=== PATIENT | female | born 1970 | race African-American/Black ===

== ENCOUNTER 2016-09-17 08:34 | Observation (INO) | payer OTHER ==
[~2016-09-17] VITALS: Ht 172.7 cm; Wt 96.8 kg
[~2016-09-17 08:34] MED LIST: ACETTAB3 OR; AMOXICILLIN500 MG PO; ATENOLOL25 MG OR; AVAPRO300 MG OR; CLOTRIMAZOLE100 MG VA; CORTISPORIN OTI10 M2 OT; COVERA HS PO; DIGOXIN0.125 MG PO; DIGOXIN0.25 MG PO; FUROSEMIDE20 MG PO; FUROSEMIDE40 MG PO; HYDROCO/APAP1 TA9 OR; LASIX 10 MG10 MG/TA1 PO; LASIX40 MG OR; LASIX40 MG PO; LEVOTHYROXIN100 MC1 PO; LEVOTHYROXIN25 MC1 PO; Levaquin PO; NAPROSYN375 MG PO; NASONEX50 MCG/AC; PLAVIX75 MG PO; SOMA350 MG OR; TENORMIN OR; TENORMIN PO; TENORMIN50 MG PO; TRAMADOL HCL50 MG PO; VERAPAMIL HCL180 M1 OR; VERAPAMIL OR; VERAPAMIL PO; VICOPROFEN OR
--- NOTE | 2016-09-17 08:40 | NUR ---
PT ARRIVES AND AMBULATES TO ROOM 2 WITH STABLE GAIT, TRIAGED AT BEDSIDE.
[2016-09-17] MEDS ORDERED: ATENOLOL100 MG PO (08:47)
[2016-09-17] MEDS ORDERED: LISINOPRIL20 MG PO (08:48)
[2016-09-17] MEDS ORDERED: AMLODIPINE10 MG PO (08:48)
[2016-09-17] MEDS ORDERED: SINGULAIR10 MG PO (08:49)
[2016-09-17] MEDS ORDERED: BACLOFEN10 MG PO (08:49)
[2016-09-17 09:28] LABS: HEMATOCRIT 42.8 % (37.0-47.0); HEMOGLOBIN 14.5 g/dl (12.0-16.0); IMMATURE GRANULOCYTES 0.4 % (0.0-1.0); MEAN CELL VOLUME 87.3 fL CALC (80.0-100.0); MEAN CORPUSCULAR HGB 29.6 pG CALC (26.0-32.0); MEAN CORPUSCULAR HGB CONC 33.9 g/L CALC (32.0-36.0); NEUT# 2.43 thou/uL (2.00-7.15); RED BLOOD COUNT 4.9 mill/uL (4.20-5.60); RED CELL DISTRI WIDTH 13.8 % (11.5-15.5)
[2016-09-17 09:43] LABS: ALBUMIN 4.1 g/dL (3.2-5.0); ALKALINE PHOSPHATASE 72 u/l (38-126); ANION GAP 12 (6-22 (CALC)); BILIRUBIN, TOTAL 0.6 mg/dL (0.0-1.4); BUN 14 mg/dL (7-17); BUN/CREATININE RATIO 20 (12-20 (CALC)); CALCIUM 9.5 mg/dL (8.4-10.2); CARBON DIOXIDE 24 mmol/l (22-30); CHLORIDE 107 mmol/l (95-108); CREATININE 0.7 mg/dL (0.5-1.0); GFR > 60 ML/MIN (>=60 (CALC)); GFR FOR AFR.AMER. > 60 ML/MIN (>=60 (CALC)); GLUCOSE 101 mg/dL (65-105); POTASSIUM 3.8 mmol/l (3.5-5.1); SGOT/AST 21 u/l (14-36); SGPT/ALT 26 u/l (9-52); SODIUM 139 mmol/l (137-146); TOTAL PROTEIN 7.7 g/dL (6.3-8.2)
[2016-09-17 09:55] LABS: MYOGLOBIN 23 ng/mL (0 - 62)
--- NOTE | 2016-09-17 10:34 | NUR ---
PT PROVIDED CLONIDINE ORDERED, CONTINUES TO REST IN THE STRETCHER IN NO ACUTE DISTRESS.
--- NOTE | 2016-09-17 10:46 | NUR ---
EDP SPEAKS WITH PT, DECIDES TO ADMIT FOR FURTHER BP MONITORING AND CONTROL.
--- NOTE | 2016-09-17 11:45 | NUR ---
PT ARRIVED TO FLOOR AT THIS TIME VIA ERICKA ACCOMPANIED BY COLLEEN RN; PT AMB TO SCALE AND BATHROOM WITH STEADY GAIT; PT C/O HEADACHE RATING 6 OUT OF 10; ASSESSMENT COMPLETED AT THIS TIME; B/P READING 198/110 MANUAL; DR GONGORA AT BEDSIDE TO DISCUSS POC; ORDERS FOR IV HYDRALAZINE GIVEN; TELE IN PLACE; PT ORIENTED TO ROOM AND CALL LIGHT SYSTEM; FALL PRECAUTIONS IN PLACE; CALL LIGHT WITHIN REACH; WILL CONTINUE TO MONITOR
--- NOTE | 2016-09-17 11:51 | NUR ---
PT TAKEN TO ROOM 289 WITHOUT INCIDENT, REPORT WAS TO GARRETT.
[2016-09-17 12:17] VITALS: BP 192/110
[2016-09-17 16:09] VITALS: BP 151/56
--- NOTE | 2016-09-17 18:45 | NUR ---
RECEIVED SHIFT REPORT FROM JUAN TUCKER. PATIENT RESTING IN BED AND APPEARS TO BE IN NO APPARENT DISTRESS. WILL CONTINUE TO MONITOR.
[2016-09-17 19:25] VITALS: BP 171/82
[2016-09-17 23:10] VITALS: BP 157/88
[2016-09-18] VITALS (12 sets, daily range): BP systolic 147–199; BP diastolic 70–94
--- NOTE | 2016-09-18 | NUR ---
PATIENT RESTING QUIETLY IN BED. PATIENT APPEARS TO BE IN NO APPARENT DISTRESS. WILL CONTINUE TO MONITOR.
--- NOTE | 2016-09-18 04:00 | NUR ---
PATIENT RESTING IN BED WITH EYES CLOSED. NO ACUTE DISTRESS NOTED.
[2016-09-18 06:24] LABS: HEMATOCRIT 44.7 % (37.0-47.0); HEMOGLOBIN 15.3 g/dl (12.0-16.0); IMMATURE GRANULOCYTES 0.2 % (0.0-1.0); MEAN CELL VOLUME 86.5 fL CALC (80.0-100.0); MEAN CORPUSCULAR HGB 29.6 pG CALC (26.0-32.0); MEAN CORPUSCULAR HGB CONC 34.2 g/L CALC (32.0-36.0); NEUT# 2.43 thou/uL (2.00-7.15); RED BLOOD COUNT 5.17 mill/uL (4.20-5.60); RED CELL DISTRI WIDTH 13.8 % (11.5-15.5)
[2016-09-18 06:32] LABS: ANION GAP 13 (6-22 (CALC)); BUN 11 mg/dL (7-17); BUN/CREATININE RATIO 14 (12-20 (CALC)); CALCIUM 10.1 mg/dL (8.4-10.2); CALCULATED LDLCHOLESTEROL 147 mg/dL (62-129 (CALC)); CARBON DIOXIDE 24 mmol/l (22-30); CHLORIDE 104 mmol/l (95-108); CREATININE 0.8 mg/dL (0.5-1.0); GFR > 60 ML/MIN (>=60 (CALC)); GFR FOR AFR.AMER. > 60 ML/MIN (>=60 (CALC)); GLUCOSE 104 mg/dL (65-105); HDL CHOLESTEROL 48 mg/dL (>=40); POTASSIUM 3.9 mmol/l (3.5-5.1); SODIUM 137 mmol/l (137-146); TOTAL CHOLESTEROL 230 mg/dl (0-199); TOTAL TRIGLYCERIDES 173 mg/dl (30-149); VLDL CHOLESTROL 35 mg/dl (1-41 (CALC))
--- NOTE | 2016-09-18 08:00 | NUR ---
SHIFT CHANGE REPORT FROM ELBA, MARIAH SLEEPING BUT AROUSES TO VERBAL STIMULI, C/O HEADACHE AT THIS TIME, WILL CONTINUE TO MONITOR AND ADDRESS CONCERNS, CALL MENSAH IN REACH.
--- NOTE | 2016-09-18 13:27 | NUR ---
PT NAUTIOUS AND VOMITTED @ 1220, BP ELEVATED, MD NOTIFIED AND GAVE ORDERS. PT C/O CHEST PAIN @ 1315, STAT EKG AND CXR ORDERED, NOTIFOED, WROTE ADDITIONAL ORDERS, VITAL SIGNS MEASURED AND RECORDED, WILL CONTINUE TO MONITOR, CALL MENSAH IN REACH.
--- NOTE | 2016-09-18 14:30 | NUR ---
PT REPORTS CHEST PAIN SUBSIDED, RESTING IN BED AT THIS TIME, REPORTS HEADACHE NOT SUBSIDED, COOL COMPRESS IN PLACE, WILL CONTINUE TO MONITOR.
--- NOTE | 2016-09-18 18:30 | NUR ---
KRYSTINA IN LAB CALLED TO REPORT ELEVATED TROP LEVEL, DR COLEMAN NOTIFIED, GAVE ORDERS TO TRANSFER TO [facility], [place] (RN TELE) CAME TO UNIT AND ASSISTED WITH PROCESS. NEW ORDERS REQUIRED FROM [facility] BEFORE ACCEPTING PT. NITRO GTT INITIATED BY ED RN, PT LEFT UNIT VIA STRETCHER FOR CTA THEN TO BE TRANSFERRED TO ICU. REPORT CALLED TO JOANNE IN ICU.
--- NOTE | 2016-09-18 18:50 | NUR ---
DISCUSSED CASE WITH DR. COLEMAN. PT WITH CURRENTLY RIGHT SIDED NECK PAIN 4/10 WITH RADIATION TO HEAD. REPEAT EKG DONE STAT. PHONED [facility] AT [phone]. PERTINENT INFORMATION GIVEN TO ADELINE MARTINEZ, PT AREA LOSS PREVENTION MANAGER. STATES SHE WILL CALL HAILEE VARGAS TO EVALUATE FOR NEED TO CATH EMERGENTLY. 'S CONTACT INFORMATION PROVIDED TO TRANSFER CENTER IN [place]TICIPATION OF MD TO CONSULT FOR ACCEPTANCE. AEROMED HELICOPTER PUT ON STANDBY FOR POSSIBLE EMERGENT TRANSPORT TO [facility] TRUCK [facility]OTTER.
--- NOTE | 2016-09-18 19:08 | NUR ---
DISCUSSED WITH DR. COLEMAN, STATES [facility] WANTS PT WORKED UP WITH STAT CTA CHEST TO RULE OUT PE.STST CTA ORDERED, #18 ga TO RIGHT AC PER Namita SIN RN. PT TO CT VIA STRETCHER AT THIS TIME.
--- NOTE | 2016-09-18 19:45 | NUR ---
report rec'd per [facility].
--- NOTE | 2016-09-18 19:54 | NUR ---
GAYATHRI FROM [facility] CALLED TO INFORM THAT PT WILL BE UNDER CARE OF DR JOHNATHAN ROBLES AND WILL CALL AGAIN WHEN BED IS AVAILABLE.
--- NOTE | 2016-09-18 19:59 | NUR ---
rec'd to icu8 per stretcher from ct scan. denies chest pain. o2 cont per nc. voided per [facility]. assistant activities director shows sinus rhythm. #22 rfa nitro gtt infusing @ 30mcg ns infusing @ 20cchr. #20 rac saline lock. came into room. pt upset & tearful. updated on pts condition & bed status [facility]. tylenol 650mg & xanax 0.25mg po given per request.
--- NOTE | 2016-09-18 20:30 | NUR ---
multi family members in to vs. denies chest pain. monitor shows sinus rhythm.
--- NOTE | 2016-09-18 20:30 | NUR ---
nitish from [facility] transfer center called. bed rec'd. to be transferred to 8 [facility] room 811. report to be called to [phone]. annel @ [facility] called. will be here in 20 minutes.
--- NOTE | 2016-09-18 21:00 | NUR ---
nitish @ [facility] transfer center called. room changed to 807.
--- NOTE | 2016-09-18 21:05 | NUR ---
[facility] here. report given to file drawer finisher cruz.
--- NOTE | 2016-09-18 21:20 | NUR ---
[facility] left. report called to eugene @ [facility].
== END 2016-09-18 21:20 | disposition short-term general hospital (02) | DRG 305 ==
LOC: ED 08:34 → ED-I 10:53 → ED 10:55 → MS2 10:56 → ICU 09-18 19:00
PROVIDERS: Emergency Medicine; ADMIT Internal Medicine; ATTEND Internal Medicine
DX: I16.0 Hypertensive urgency (principal); R00.1 Bradycardia, unspecified; I10 Essential (primary) hypertension; R51 Headache; R42 Dizziness and giddiness; R74.8 Abnormal levels of other serum enzymes; E03.9 Hypothyroidism, unspecified; M19.90 Unspecified osteoarthritis, unspecified site; M62.838 Other muscle spasm; Z79.02 Long term (current) use of antithrombotics/antiplatelets; Z79.899 Other long term (current) drug therapy
CPT/HCPCS: G0378; J1650

== ENCOUNTER 2016-12-04 04:49 | Emergency (ER) | payer OTHER ==
[~2016-12-04] VITALS: Ht 172.7 cm; Wt 95.0 kg
[~2016-12-04 04:49] MED LIST changes: +AMLODIPINE10 MG PO; +ATENOLOL100 MG PO; +BACLOFEN10 MG PO; +LISINOPRIL20 MG PO; +SINGULAIR10 MG PO
[2016-12-04] MEDS ORDERED: HYDROCHLOROT25 MG PO (05:35)
[2016-12-04] MEDS ORDERED: COREG3.125 MG PO (05:36)
[2016-12-04] MEDS ORDERED: ASPIRIN 81 LOW81 MG PO (05:41)
[2016-12-04] MEDS ORDERED: ATORVASTATIN CA40 MG PO (05:41)
[2016-12-04] MEDS ORDERED: ATENOLOL25 MG PO (05:42)
[2016-12-04] MEDS ORDERED: AMLODIPINE BESY10 MG PO (05:43)
[2016-12-04 05:58] LABS: IMMATURE GRANULOCYTES 0.2 % (0.0-1.0); MEAN CELL VOLUME 87.2 fL CALC (80.0-100.0); MEAN CORPUSCULAR HGB 29.8 pG CALC (26.0-32.0); MEAN CORPUSCULAR HGB CONC 34.2 g/L CALC (32.0-36.0); NEUT# 1.99 thou/uL (2.00-7.15); RED BLOOD COUNT 4.36 mill/uL (4.20-5.60); RED CELL DISTRI WIDTH 14.6 % (11.5-15.5)
[2016-12-04 06:13] LABS: ALBUMIN 4.1 g/dL (3.2-5.0); ALKALINE PHOSPHATASE 64 u/l (38-126); ANION GAP 12 (6-22 (CALC)); BILIRUBIN, TOTAL 0.8 mg/dL (0.0-1.4); BUN 20 mg/dL (7-17); BUN/CREATININE RATIO 24 (12-20 (CALC)); CALCIUM 9.2 mg/dL (8.4-10.2); CARBON DIOXIDE 26 mmol/l (22-30); CHLORIDE 106 mmol/l (95-108); CREATININE 0.9 mg/dL (0.5-1.0); GFR > 60 ML/MIN (>=60 (CALC)); GFR FOR AFR.AMER. > 60 ML/MIN (>=60 (CALC)); GLUCOSE 98 mg/dL (65-105); POTASSIUM 3.2 mmol/l (3.5-5.1); SGOT/AST 35 u/l (14-36); SGPT/ALT 34 u/l (9-52); SODIUM 140 mmol/l (137-146); TOTAL PROTEIN 7.2 g/dL (6.3-8.2)
[2016-12-04 06:16] LABS: PROTHROMBIN TIME 10.3 SECONDS (9.0-12.5)
[2016-12-04 06:28] LABS: DIGOXIN 0.6 ng/mL (0.8-2.0); MYOGLOBIN 58 ng/mL (0 - 62)
[2016-12-04 06:31] VITALS: BP 153/70
[2016-12-04 07:36] LABS: CHOLESTEROL HDL RATIO 5.7 (<4.4 (CALC))
== END 2016-12-04 07:00 | disposition left against medical advice (07) | DRG 313 ==
LOC: ED 04:49 → ED-I 06:35 → ED 07:00
PROVIDERS: Emergency Medicine; Internal Medicine
DX: R07.9 Chest pain, unspecified (principal); I10 Essential (primary) hypertension; R00.1 Bradycardia, unspecified; E87.6 Hypokalemia; Z91.19 Patient's noncompliance with other medical treatment and regimen; R11.0 Nausea

== ENCOUNTER 2018-05-08 17:51 | Emergency (ER) | payer SELFPAY ==
[~2018-05-08] VITALS: Ht 177.8 cm; Wt 90.9 kg
[~2018-05-08 17:51] MED LIST changes: +AMLODIPINE BESY10 MG PO; +ASPIRIN 81 LOW81 MG PO; +ATENOLOL25 MG PO; +ATORVASTATIN CA40 MG PO; +BACTROBAN TOP; +CLONAZEPAM0.5 MG PO; +CLOPIDOGREL75 MG PO; +COREG3.125 MG PO; +DILAUDID8 MG PO; +HYDROCHLOROT25 MG PO; +KEFLEX500 M1 PO; +LEVOTHYROXIN100 MCG PO; +NAPROSYN500 MG PO; +OXYMORPHONE HYD30 MG PO; +PANTOPRAZOLE SO40 M1 PO; +SINGULAIR PO; +ULTRAM50 M1 PO; +ZOLPIDEM10 MG PO; +ZPAK PO
[2018-05-08 18:33] LABS: HEMATOCRIT 42.3 % (37.0-47.0); HEMOGLOBIN 13.6 g/dl (12.0-16.0); IMMATURE GRANULOCYTES 0.2 % (0.0-5.0); MEAN CELL VOLUME 87.9 fL CALC (80.0-100.0); MEAN CORPUSCULAR HGB 28.3 pG CALC (26.0-32.0); MEAN CORPUSCULAR HGB CONC 32.2 g/L CALC (32.0-36.0); NEUT# 2.85 thou/uL (2.00-7.15); RED BLOOD COUNT 4.81 mill/uL (4.20-5.60); RED CELL DISTRI WIDTH 17.1 % (11.5-15.5)
[2018-05-08 18:35] LABS: URINE BILIRUBIN - DIPSTICK NEGATIVE (NEGATIVE); URINE BLOOD DIPSTICK LARGE (NEGATIVE); URINE COLOR YELLOW; URINE GLUCOSE - DIPSTICK NEGATIVE (NEGATIVE); URINE KETONE NEGATIVE (NEGATIVE); URINE LEUK ESTERASE NEGATIVE (NEGATIVE); URINE NITRITE - DIPSTICK NEGATIVE (Negative); URINE PROTEIN - DIPSTICK NEGATIVE (NEG-TRACE); URINE UROBILINOGEN - DIPSTICK 0.2 E.U./dL (0.2)
[2018-05-08 18:39] LABS: BARBITURATES NEGATIVE (NEGATIVE); COCAINE NEGATIVE (NEGATIVE); METHADONE NEGATIVE (NEGATIVE); OXCYCODONE NEGATIVE (NEGATIVE); TETRAHYDROCANNABIONOL NEGATIVE (NEGATIVE); TRICYLIC ANTIDEPRESSANTS NEGATIVE (NEGATIVE)
[2018-05-08 18:42] LABS: URINE WBC 0-2 WBC/hpf (0-5)
[2018-05-08 18:43] LABS: URINE SQUAMOUS EPITHELIAL CELL FEW EPI/hpf (0-FEW)
[2018-05-08 18:53] LABS: ALBUMIN 4.1 g/dL (3.2-5.0); ALKALINE PHOSPHATASE 89 u/l (38-126); ANION GAP 13 (6-22 (CALC)); BILIRUBIN, TOTAL 0.6 mg/dL (0.0-1.4); BUN 12 mg/dL (7-17); BUN/CREATININE RATIO 16 (12-20 (CALC)); CARBON DIOXIDE 29 mmol/l (22-30); CHLORIDE 102 mmol/l (95-108); CREATININE 0.8 mg/dL (0.5-1.0); GFR > 60 ML/MIN (>=60 (CALC)); GFR FOR AFR.AMER. > 60 ML/MIN (>=60 (CALC)); POTASSIUM 3.9 mmol/l (3.5-5.1); SGOT/AST 28 u/l (14-36); SODIUM 139 mmol/l (137-146); TOTAL PROTEIN 7.4 g/dL (6.3-8.2)
[2018-05-08 19:06] LABS: MYOGLOBIN 119 ng/mL (0 - 62)
[2018-05-08 22:36] VITALS: BP 151/73
== END 2018-05-08 22:35 | disposition home or self-care (01) | DRG 310 ==
LOC: ED 17:51
DX: R00.2 Palpitations (principal); M54.2 Cervicalgia

== ENCOUNTER 2018-05-25 01:51 | Emergency (ER) | payer SELFPAY ==
[~2018-05-25] VITALS: Ht 177.8 cm; Wt 95.5 kg
[2018-05-25 02:23] LABS: BARBITURATES NEGATIVE (NEGATIVE); COCAINE NEGATIVE (NEGATIVE); METHADONE NEGATIVE (NEGATIVE); OXCYCODONE NEGATIVE (NEGATIVE); TETRAHYDROCANNABIONOL NEGATIVE (NEGATIVE); TRICYLIC ANTIDEPRESSANTS NEGATIVE (NEGATIVE)
[2018-05-25] MEDS ORDERED: TORADOL PO (03:37)
[2018-05-25] MEDS ORDERED: TRAMADOL HCL50 MG PO (03:37)
[2018-05-25 03:48] VITALS: BP 147/93
== END 2018-05-25 03:48 | disposition home or self-care (01) | DRG 74 ==
LOC: ED 01:51
PROVIDERS: Family Medicine
DX: M54.12 Radiculopathy, cervical region (principal); I10 Essential (primary) hypertension; K21.9 Gastro-esophageal reflux disease without esophagitis

== ENCOUNTER 2018-10-31 13:41 | Emergency (ER) | payer BC ==
[~2018-10-31] VITALS: Ht 177.8 cm; Wt 100.0 kg
[~2018-10-31 13:41] MED LIST changes: +TORADOL PO
[2018-10-31] MEDS ORDERED: SYNTHROID88 MCG PO (15:09)
[2018-10-31 15:44] VITALS: BP 149/94
== END 2018-10-31 15:57 | disposition home or self-care (01) | DRG 605 ==
LOC: ED 13:41
DX: S80.01XA Contusion of right knee, initial encounter (principal); I10 Essential (primary) hypertension; W18.39XA Other fall on same level, initial encounter
CPT/HCPCS: L1830

== ENCOUNTER 2019-09-21 | Emergency (ER) | payer SELFPAY ==
[~2019-09-21] MED LIST changes: +SYNTHROID88 MCG PO
== END 2019-09-21 01:58 | disposition home or self-care (01) | DRG 93 ==
DX: G89.29 Other chronic pain (principal); M25.512 Pain in left shoulder; I10 Essential (primary) hypertension

== ENCOUNTER 2019-09-24 | Emergency (ER) | payer MEDICAID ==
[2019-09-24 21:48] LABS: HEMATOCRIT 38.6 % (37.0-47.0); HEMOGLOBIN 13.2 g/dl (12.0-16.0); IMMATURE GRANULOCYTES 0.3 % (0.0-5.0); MEAN CELL VOLUME 86.7 fL CALC (80.0-100.0); MEAN CORPUSCULAR HGB 29.7 pG CALC (26.0-32.0); MEAN CORPUSCULAR HGB CONC 34.2 g/dL CAL (32.0-36.0); NEUT# 4.21 thou/uL (2.00-7.15); RED BLOOD COUNT 4.45 mill/uL (4.20-5.60); RED CELL DISTRI WIDTH 14.5 % (11.5-15.5)
[2019-09-24 22:08] LABS: ALKALINE PHOSPHATASE 78 u/l (38-126); ANION GAP 8 (6-22 (CALC)); BILIRUBIN, TOTAL 0.4 mg/dL (0.0-1.4); BUN 13 mg/dL (7-17); BUN/CREATININE RATIO 19 (12-20 (CALC)); CARBON DIOXIDE 25 mmol/l (22-30); CHLORIDE 105 mmol/l (95-108); CREATININE 0.7 mg/dL (0.5-1.0); GFR > 60 ML/MIN (>=60 (CALC)); GFR FOR AFR.AMER. > 60 ML/MIN (>=60 (CALC)); SGOT/AST 23 u/l (14-36); SODIUM 135 mmol/l (137-146); TOTAL PROTEIN 7.3 g/dL (6.3-8.2)
[2019-09-24 22:09] LABS: POTASSIUM 3.1 mmol/l (3.5-5.1)
[2019-09-24 22:19] LABS: MYOGLOBIN 20 ng/mL (0 - 62)
[2019-09-24] MEDS ORDERED: CEPHALEXIN500 M1 PO (23:46)
== END 2019-09-25 00:40 | disposition left against medical advice (07) ==
PROVIDERS: Emergency Medicine
DX: R07.9 Chest pain, unspecified (principal); J18.9 Pneumonia, unspecified organism; I10 Essential (primary) hypertension; Z91.19 Patient's noncompliance with other medical treatment and regimen
CPT/HCPCS: Q9967

== ENCOUNTER 2019-11-07 10:41 | Emergency (ER) | payer MEDICAID ==
[~2019-11-07] VITALS: Ht 177.8 cm; Wt 100.0 kg
[~2019-11-07 10:41] MED LIST changes: +CEPHALEXIN500 M1 PO
[2019-11-07 11:36] LABS: HEMATOCRIT 41.3 % (37.0-47.0); IMMATURE GRANULOCYTES 0.4 % (0.0-5.0); MEAN CELL VOLUME 88.6 fL CALC (80.0-100.0); MEAN CORPUSCULAR HGB CONC 33.9 g/dL CAL (32.0-36.0); NEUT# 2.22 thou/uL (2.00-7.15); RED BLOOD COUNT 4.66 mill/uL (4.20-5.60)
[2019-11-07 11:38] LABS: URINE BILIRUBIN - DIPSTICK NEGATIVE (NEGATIVE); URINE BLOOD DIPSTICK NEGATIVE (NEGATIVE); URINE COLOR YELLOW; URINE GLUCOSE - DIPSTICK NEGATIVE (NEGATIVE); URINE KETONE NEGATIVE (NEGATIVE); URINE LEUK ESTERASE NEGATIVE (NEGATIVE); URINE NITRITE - DIPSTICK NEGATIVE (Negative); URINE PH 6.5 (4.5-8.0); URINE PROTEIN - DIPSTICK NEGATIVE (NEG-TRACE); URINE UROBILINOGEN - DIPSTICK 0.2 E.U./dL (0.2)
[2019-11-07 11:56] LABS: ALBUMIN 4.2 g/dL (3.2-5.0); ALKALINE PHOSPHATASE 80 u/l (38-126); BUN 12 mg/dL (7-17); BUN/CREATININE RATIO 21 (12-20 (CALC)); CARBON DIOXIDE 25 mmol/l (22-30); CHLORIDE 105 mmol/l (95-108); CREATININE 0.6 mg/dL (0.5-1.0); GFR > 60 ML/MIN (>=60 (CALC)); GFR FOR AFR.AMER. > 60 ML/MIN (>=60 (CALC)); SGOT/AST 22 u/l (14-36); SODIUM 136 mmol/l (137-146); TOTAL PROTEIN 7.5 g/dL (6.3-8.2)
[2019-11-07 11:57] LABS: ANION GAP 10 (6-22 (CALC)); BILIRUBIN, TOTAL 0.6 mg/dL (0.0-1.4); POTASSIUM 4.1 mmol/l (3.5-5.1)
[2019-11-07 12:07] LABS: MYOGLOBIN 24 ng/mL (0 - 62)
[2019-11-07] MEDS ORDERED: FLEXERIL PO ×3 (12:58→13:37)
[2019-11-07] MEDS ORDERED: ULTRAM50 M1 PO (12:58)
[2019-11-07 13:41] VITALS: BP 139/74
== END 2019-11-07 13:44 | disposition home or self-care (01) ==
LOC: ED 10:41
PROVIDERS: Emergency Medicine
DX: S43.402A Unspecified sprain of left shoulder joint, initial encounter (principal); M47.22 Other spondylosis with radiculopathy, cervical region; I10 Essential (primary) hypertension; X58.XXXA Exposure to other specified factors, initial encounter

== ENCOUNTER 2019-12-24 05:32 | Emergency (ER) | payer MEDICAID ==
[~2019-12-24] VITALS: Ht 177.8 cm; Wt 103.6 kg
[~2019-12-24 05:32] MED LIST changes: +FLEXERIL PO
[2019-12-24] MEDS ORDERED: NORVASC2.5 M1 PO (05:57)
[2019-12-24] MEDS ORDERED: DILAUDID8 MG PO (05:58)
[2019-12-24] MEDS ORDERED: LEVOTHYROXIN25 MC1 PO (05:58)
[2019-12-24 06:25] LABS: HEMATOCRIT 38.8 % (37.0-47.0); HEMOGLOBIN 12.6 g/dl (12.0-16.0); IMMATURE GRANULOCYTES 0.4 % (0.0-5.0); MEAN CELL VOLUME 90.7 fL CALC (80.0-100.0); MEAN CORPUSCULAR HGB 29.4 pG CALC (26.0-32.0); MEAN CORPUSCULAR HGB CONC 32.5 g/dL CAL (32.0-36.0); NEUT# 2.1 thou/uL (2.00-7.15); RED BLOOD COUNT 4.28 mill/uL (4.20-5.60); RED CELL DISTRI WIDTH 13.8 % (11.5-15.5)
[2019-12-24 06:56] LABS: ALBUMIN 3.8 g/dL (3.2-5.0); ALKALINE PHOSPHATASE 79 u/l (38-126); AMYLASE 48 u/l (30-110); ANION GAP 8 (6-22 (CALC)); BILIRUBIN, TOTAL 0.7 mg/dL (0.0-1.4); BUN 17 mg/dL (7-17); BUN/CREATININE RATIO 28 (12-20 (CALC)); CARBON DIOXIDE 22 mmol/l (22-30); CHLORIDE 108 mmol/l (95-108); CREATININE 0.6 mg/dL (0.5-1.0); GFR > 60 ML/MIN (>=60 (CALC)); GFR FOR AFR.AMER. > 60 ML/MIN (>=60 (CALC)); LIPASE 87 u/l (23-300); POTASSIUM 4.1 mmol/l (3.5-5.1); SGOT/AST 28 u/l (14-36); SODIUM 134 mmol/l (137-146); TOTAL PROTEIN 6.8 g/dL (6.3-8.2)
[2019-12-24 07:03] LABS: ACT PARTIAL THROMBO TIME 22.5 SECONDS (20.0-32.5); INTERNATIONAL NORMALIZED RATIO 0.9 RATIO (0.7-1.3); PROTHROMBIN TIME 9.1 SECONDS (9.0-12.5)
[2019-12-24 07:06] LABS: D-DIMER 1.63 mg/L (0.19-0.60)
[2019-12-24 07:25] LABS: MYOGLOBIN 22 ng/mL (0 - 62)
[2019-12-24 09:00] VITALS: BP 148/85
== END 2019-12-24 08:58 | disposition home or self-care (01) ==
LOC: ED 05:32
PROVIDERS: Family Medicine
DX: R07.9 Chest pain, unspecified (principal); I10 Essential (primary) hypertension; K21.9 Gastro-esophageal reflux disease without esophagitis
CPT/HCPCS: Q9967

== ENCOUNTER 2020-05-05 04:40 | Emergency (ER) | payer MEDICAID ==
[~2020-05-05] VITALS: Ht 177.8 cm; Wt 100.0 kg
[~2020-05-05 04:40] MED LIST changes: +NORVASC2.5 M1 PO
[2020-05-05] MEDS ORDERED: HYDROCHLOROT25 MG PO (05:06)
[2020-05-05 05:19] LABS: HEMOGLOBIN 13.8 g/dl (12.0-16.0); IMMATURE GRANULOCYTES 0.2 % (0.0-5.0); MEAN CELL VOLUME 88.2 fL CALC (80.0-100.0); MEAN CORPUSCULAR HGB 29.7 pG CALC (26.0-32.0); MEAN CORPUSCULAR HGB CONC 33.7 g/dL CAL (32.0-36.0); NEUT# 3.87 thou/uL (2.00-7.15); RED BLOOD COUNT 4.65 mill/uL (4.20-5.60); RED CELL DISTRI WIDTH 13.4 % (11.5-15.5)
[2020-05-05 05:26] LABS: ALKALINE PHOSPHATASE 103 u/l (38-126); AMYLASE 48 u/l (30-110); BILIRUBIN, TOTAL 0.6 mg/dL (0.0-1.4); BUN 8 mg/dL (7-17); BUN/CREATININE RATIO 14 (12-20 (CALC)); CHLORIDE 100 mmol/l (95-108); CREATININE 0.6 mg/dL (0.5-1.0); GFR > 60 ML/MIN (>=60 (CALC)); GFR FOR AFR.AMER. > 60 ML/MIN (>=60 (CALC)); LIPASE 35 u/l (23-300); SGOT/AST 17 u/l (14-36); SODIUM 135 mmol/l (137-146); TOTAL PROTEIN 7.2 g/dL (6.3-8.2)
[2020-05-05 05:28] LABS: ANION GAP 10 (6-22 (CALC)); POTASSIUM 3.3 mmol/l (3.5-5.1)
[2020-05-05 05:29] LABS: CARBON DIOXIDE 28 mmol/l (22-30)
[2020-05-05 05:38] LABS: MYOGLOBIN 25 ng/mL (0 - 62)
[2020-05-05 06:04] LABS: URINE BILIRUBIN - DIPSTICK NEGATIVE (NEGATIVE); URINE BLOOD DIPSTICK NEGATIVE (NEGATIVE); URINE COLOR YELLOW; URINE GLUCOSE - DIPSTICK NEGATIVE (NEGATIVE); URINE KETONE NEGATIVE (NEGATIVE); URINE LEUK ESTERASE NEGATIVE (NEGATIVE); URINE NITRITE - DIPSTICK NEGATIVE (Negative); URINE PROTEIN - DIPSTICK NEGATIVE (NEG-TRACE); URINE SPECIFIC GRAVITY <=1.005; URINE UROBILINOGEN - DIPSTICK 0.2 E.U./dL (0.2)
[2020-05-05 06:30] VITALS: BP 168/82
== END 2020-05-05 06:39 | disposition left against medical advice (07) ==
LOC: ED 04:40
PROVIDERS: Emergency Medicine
DX: R07.9 Chest pain, unspecified (principal); I10 Essential (primary) hypertension; K21.9 Gastro-esophageal reflux disease without esophagitis; Z91.19 Patient's noncompliance with other medical treatment and regimen
CPT/HCPCS: S0164

== ENCOUNTER 2020-08-03 09:36 | Emergency (ER) | payer MEDICAID ==
[~2020-08-03] VITALS: Ht 177.8 cm; Wt 94.0 kg
[2020-08-03 10:08] LABS: HEMATOCRIT 43.8 % (37.0-47.0); HEMOGLOBIN 14.1 g/dl (12.0-16.0); IMMATURE GRANULOCYTES 0.2 % (0.0-5.0); MEAN CORPUSCULAR HGB 28.7 pG CALC (26.0-32.0); MEAN CORPUSCULAR HGB CONC 32.2 g/dL CAL (32.0-36.0); NEUT# 3.19 thou/uL (2.00-7.15); RED BLOOD COUNT 4.92 mill/uL (4.20-5.60); RED CELL DISTRI WIDTH 15.6 % (11.5-15.5)
[2020-08-03 10:18] LABS: GFR > 60 ML/MIN (>=60 (CALC)); GFR FOR AFR.AMER. > 60 ML/MIN (>=60 (CALC))
[2020-08-03 10:33] LABS: ANION GAP 11 (6-22 (CALC)); BUN 11 mg/dL (7-17); BUN/CREATININE RATIO 19 (12-20 (CALC)); CARBON DIOXIDE 27 mmol/l (22-30); CHLORIDE 103 mmol/l (95-108); CREATININE 0.6 mg/dL (0.5-1.0); GFR > 60 ML/MIN (>=60 (CALC)); GFR FOR AFR.AMER. > 60 ML/MIN (>=60 (CALC)); POTASSIUM 3.4 mmol/l (3.5-5.1); SODIUM 137 mmol/l (137-146)
[2020-08-03] MEDS ORDERED: AMOX/K CLAV875 M1 PO (11:13)
[2020-08-03 11:28] VITALS: BP 212/100
== END 2020-08-03 11:30 | disposition home or self-care (01) ==
LOC: ED 09:36
PROVIDERS: Family Medicine
DX: R59.1 Generalized enlarged lymph nodes (principal); I10 Essential (primary) hypertension; K21.9 Gastro-esophageal reflux disease without esophagitis
CPT/HCPCS: Q9967

== ENCOUNTER 2021-03-18 11:10 | Emergency (ER) | payer MEDICAID ==
[~2021-03-18] VITALS: Ht 177.8 cm; Wt 97.0 kg
[~2021-03-18 11:10] MED LIST changes: +AMOX/K CLAV875 M1 PO
[2021-03-18] MEDS ORDERED: CEPHALEXIN500 M1 PO (13:12)
[2021-03-18] MEDS ORDERED: COLCHICINE0.6 M2 PO (13:12)
[2021-03-18 13:20] VITALS: BP 196/111
== END 2021-03-18 13:20 | disposition home or self-care (01) ==
LOC: ED 11:10
DX: M10.072 Idiopathic gout, left ankle and foot (principal); L03.116 Cellulitis of left lower limb; I10 Essential (primary) hypertension; K21.9 Gastro-esophageal reflux disease without esophagitis

== ENCOUNTER 2021-06-15 08:54 | Emergency (ER) | payer MEDICAID ==
[~2021-06-15] VITALS: Ht 177.8 cm; Wt 100.0 kg
[~2021-06-15 08:54] MED LIST changes: +COLCHICINE0.6 M2 PO
[2021-06-15 12:17] LABS: HEMATOCRIT 44.7 % (37.0-47.0); HEMOGLOBIN 14.1 g/dl (12.0-16.0); IMMATURE GRANULOCYTES 0.5 % (0.0-5.0); MEAN CELL VOLUME 91.4 fL CALC (80.0-100.0); MEAN CORPUSCULAR HGB 28.8 pG CALC (26.0-32.0); MEAN CORPUSCULAR HGB CONC 31.5 g/dL CAL (32.0-36.0); NEUT# 2.44 thou/uL (2.00-7.15); RED BLOOD COUNT 4.89 mill/uL (4.20-5.60); RED CELL DISTRI WIDTH 15.6 % (11.5-15.5)
[2021-06-15 12:30] LABS: ALBUMIN 3.7 g/dL (3.2-5.0); ALKALINE PHOSPHATASE 81 u/l (38-126); ANION GAP 10 (6-22 (CALC)); BILIRUBIN, TOTAL 0.7 mg/dL (0.0-1.4); BUN 12 mg/dL (7-17); BUN/CREATININE RATIO 18 (12-20 (CALC)); CARBON DIOXIDE 28 mmol/l (22-30); CHLORIDE 105 mmol/l (95-108); CREATININE 0.7 mg/dL (0.5-1.0); GFR > 60 ML/MIN (>=60 (CALC)); GFR FOR AFR.AMER. > 60 ML/MIN (>=60 (CALC)); POTASSIUM 4.3 mmol/l (3.5-5.1); SGOT/AST 22 u/l (14-36); SODIUM 138 mmol/l (137-146); TOTAL PROTEIN 7.1 g/dL (6.3-8.2)
[2021-06-15] MEDS ORDERED: CLEOCIN300 MG PO (17:05)
[2021-06-15] MEDS ORDERED: EPSOM SAL1 TOP (17:05)
[2021-06-15] MEDS ORDERED: TORADOL PO (17:05)
[2021-06-15 17:13] VITALS: BP 188/90
== END 2021-06-15 17:05 | disposition left against medical advice (07) ==
LOC: ED 08:54
PROVIDERS: Emergency Medicine
DX: L03.312 Cellulitis of back [any part except buttock and flank] (principal); I10 Essential (primary) hypertension; K21.9 Gastro-esophageal reflux disease without esophagitis; Z91.19 Patient's noncompliance with other medical treatment and regimen
CPT/HCPCS: Q9967

== ENCOUNTER 2022-04-10 07:42 | Emergency (ER) | payer MEDICAID ==
[~2022-04-10] VITALS: Ht 177.8 cm; Wt 99.3 kg
[~2022-04-10 07:42] MED LIST changes: +CLEOCIN300 MG PO; +EPSOM SAL1 TOP
[2022-04-10 07:48] VITALS: BP 186/103
[2022-04-10 08:01] VITALS: BP 154/93
[2022-04-10 08:31] VITALS: BP 158/87
[2022-04-10 08:33] LABS: HEMATOCRIT 41.2 % (37.0-47.0); HEMOGLOBIN 13.9 g/dl (12.0-16.0); IMMATURE GRANULOCYTES 0.2 % (0.0-5.0); MEAN CELL VOLUME 88.4 fL CALC (80.0-100.0); MEAN CORPUSCULAR HGB 29.8 pG CALC (26.0-32.0); MEAN CORPUSCULAR HGB CONC 33.7 g/dL CAL (32.0-36.0); NEUT# 1.97 thou/uL (2.00-7.15); RED BLOOD COUNT 4.66 mill/uL (4.20-5.60)
[2022-04-10 08:52] LABS: ALBUMIN 3.8 g/dL (3.2-5.0); ALKALINE PHOSPHATASE 91 u/l (38-126); ANION GAP 10 (6-22 (CALC)); BUN 12 mg/dL (7-17); BUN/CREATININE RATIO 17 (12-20 (CALC)); CARBON DIOXIDE 29 mmol/l (22-30); CHLORIDE 102 mmol/l (95-108); CREATININE 0.7 mg/dL (0.5-1.0); GFR FOR AFR.AMER. > 60 ML/MIN (>=60 (CALC)); GFR OTHER RACES > 60 ML/MIN (>=60 (CALC)); POTASSIUM 3.7 mmol/l (3.5-5.1); SGOT/AST 25 u/l (14-36); SODIUM 138 mmol/l (137-146); TOTAL PROTEIN 7.1 g/dL (6.3-8.2)
[2022-04-10 08:56] LABS: BILIRUBIN, TOTAL 0.6 mg/dL (0.0-1.4)
[2022-04-10 09:01] VITALS: BP 170/97
[2022-04-10] MEDS ORDERED: AMOX/K CLAV875 M1 PO (09:12)
[2022-04-10 09:20] VITALS: BP 170/97
== END 2022-04-10 09:32 | disposition home or self-care (01) ==
LOC: ED 07:42
PROVIDERS: Family Medicine
DX: R07.9 Chest pain, unspecified (principal); J02.0 Streptococcal pharyngitis; I10 Essential (primary) hypertension; K21.9 Gastro-esophageal reflux disease without esophagitis; Z20.822 Contact with and (suspected) exposure to COVID-19

== ENCOUNTER 2022-11-08 21:17 | Emergency (ER) | payer MEDICAID ==
[2022-11-08 22:23] LABS: BASO% 0.3 % (0-3); HEMATOCRIT 43.5 % (37.0-47.0); HEMOGLOBIN 14.3 g/dl (12.0-16.0); IMMATURE GRANULOCYTES 0.1 % (0.0-5.0); LYMPH% 29.7 % (15-41); MEAN CELL VOLUME 88.8 fL CALC (80.0-100.0); MEAN CORPUSCULAR HGB 29.2 pG CALC (26.0-32.0); MEAN CORPUSCULAR HGB CONC 32.9 g/dL CAL (32.0-36.0); NEUT# 3.88 thou/uL (2.00-7.15); NEUT% 57.9 % (42-76); RED BLOOD COUNT 4.9 mill/uL (4.20-5.60); RED CELL DISTRI WIDTH 14.2 % (11.5-15.5)
[2022-11-08 22:35] LABS: ALBUMIN 4.2 g/dL (3.2-5.0); ALKALINE PHOSPHATASE 109 u/l (38-126); ANION GAP 12 (6-22 (CALC)); BILIRUBIN, TOTAL 0.4 mg/dL (0.02-1.3); BUN 12 mg/dL (7-17); BUN/CREATININE RATIO 16 (12-20 (CALC)); CARBON DIOXIDE 27 mmol/l (22-30); CHLORIDE 103 mmol/l (95-108); CREATININE 0.7 mg/dL (0.5-1.0); GFR FOR AFR.AMER. > 60 ML/MIN (>=60 (CALC)); GFR OTHER RACES > 60 ML/MIN (>=60 (CALC)); LIPASE 49 u/l (23-300); POTASSIUM 3.5 mmol/l (3.5-5.1); SGOT/AST 24 u/l (14-36); SODIUM 138 mmol/l (137-146); TOTAL PROTEIN 7.6 g/dL (6.3-8.2)
[2022-11-08] MEDS ORDERED: TORADOL PO (23:46)
[2022-11-09 00:34] VITALS: BP 142/72
== END 2022-11-09 00:45 | disposition home or self-care (01) ==
LOC: ED 21:17
PROVIDERS: Family Medicine
DX: R07.89 Other chest pain (principal); I10 Essential (primary) hypertension; K21.9 Gastro-esophageal reflux disease without esophagitis